=== PATIENT | female | born 1975 | race Caucasian/White ===

== ENCOUNTER 2021-01-14 19:26 | Emergency (ER) | payer OTHER ==
[~2021-01-14] VITALS: Ht 172.7 cm; Wt 100.0 kg
[2021-01-14 19:28] VITALS: BP 148/87
[2021-01-14] MEDS ORDERED: HYDROcodone/acetaminophen 10/325mg tab PO ONE (22:20)
[2021-01-14] MEDS ORDERED: ketorolac tromethamine 15mg/ml inj. IM ONE (22:20)
[2021-01-14] MEDS ORDERED: IBUP-1984 PO (22:33)
== END 2021-01-14 22:50 | disposition home or self-care (01) ==
LOC: ER 19:28
DX: Z79.899 Other long term (current) drug therapy (principal); S83.8X1A Sprain of other specified parts of right knee, initial encounter; X50.1XXA Overexertion from prolonged static or awkward postures, initial encounter; Y93.89 Activity, other specified; Y92.89 Other specified places as the place of occurrence of the external cause; Y99.8 Other external cause status
CPT/HCPCS: 29505; 73564; 96372; 99283; J1885